=== PATIENT | male | born 1965 | race Caucasian/White ===

== ENCOUNTER 2017-02-17 22:04 | Emergency (ER) | payer MEDICAID ==
[~2017-02-17] VITALS: Ht 177.8 cm; Wt 81.6 kg
--- NOTE | 2017-02-17 22:10 | NUR ---
Called out to waiting room, no response.
--- NOTE | 2017-02-17 22:30 | NUR ---
51 YO MALE BB SELF. PT IS ALERT X3, C/O GENERALIZED BODY PAIN, MALAISE, CHEST DISCOMFORT. PT AMBULATED TO ER BED WITH STEADY GAIT, SKIN WARM AND DRY, RR EVEN AND UNLABORED. PT GOWNED, PLACED ON HEALTH PROGRAM MANAGER. AWAITING ORDERS FROM PROVIDER
--- NOTE | 2017-02-17 22:31 | NUR ---
MD SOTELO AT BED SIDE FOR EVAL
[2017-02-17] MEDS ORDERED: MAG HYDROX/AL HYDROX/SIMETH 30 ML UDC ONE (22:47)
[2017-02-17] MEDS ORDERED: DICYCLOMINE HCL 10 MG CAPSULE PO ONE ×2 (22:47→23:00)
[2017-02-17] MEDS ORDERED: LIDOCAINE VISCOUS 2% UD 15 ML UDC ONE (22:47)
[2017-02-17] MEDS ORDERED: ASPIRIN 81 MG TAB.CHEW ONE (22:47)
[2017-02-17] MEDS ORDERED: NITROGLYCERIN PACKET 1 GM PACKET ONE (22:48)
[2017-02-17] MEDS ORDERED: NITROGLYCERIN PACKET 1 GM PACKET TD ONE (23:00)
[2017-02-17] MEDS ORDERED: LIDOCAINE VISCOUS 2% UD 15 ML UDC MM ONE (23:00)
[2017-02-17] MEDS ORDERED: MAG HYDROX/AL HYDROX/SIMETH 30 ML UDC PO ONE (23:00)
[2017-02-17] MEDS ORDERED: ASPIRIN 81 MG TAB.CHEW PO ONE (23:00)
--- NOTE | 2017-02-17 23:04 | NUR ---
18G LEFT AC IV STARTED, BLOOD SAMPLE OBTAINED AND SENT TO LAB. MEDICATED PT ORDERED
[2017-02-17 23:13] LABS: BASOPHILS % (AUTO) 0.3 % (0.0-2.0); EOSINOPHILS # (AUTO) 0.1 /CMM (0.0-0.7); EOSINOPHILS % (AUTO) 1.1 % (0.0-6.0); HEMATOCRIT 39 % (39-51); HEMOGLOBIN 12.6 g/dL (13.5-17.5); LYMPHOCYTES % (AUTO) 36.1 % (20.0-44.0); MEAN CORPUSCULAR HEMOGLOBIN 27 PG (26.0-33.0); MEAN CORPUSCULAR HGB CONC 32 g/dl (31.0-36.0); MEAN CORPUSCULAR VOLUME 82 fL (80-96); MONOCYTES # (AUTO) 0.6 /CMM (0.1-1.30); MONOCYTES % (AUTO) 6.8 % (2.0-12.0); NEUTROPHILS # (AUTO) 4.6 /CMM (1.8-8.9); NEUTROPHILS % (AUTO) 55.7 % (43.0-81.0); PLATELET COUNT (AUTO) 324 /CMM (150-450); RDW COEFFICIENT OF VARIATION 12.8 (11.5-15.0); RED BLOOD CELL COUNT(AUTO) 4.71 MIL/uL (4.5-6.0); WHITE BLOOD COUNT (AUTO) 8.3 K/uL (4.3-11.0)
[2017-02-17 23:23] LABS: CARBON DIOXIDE 27 mmol/L (21-32); CHLORIDE 103 mmol/L (98-107); GFR 79 mL/min (>60); GLUCOSE 104 mg/dL (74-106); POTASSIUM 3.2 mmol/L (3.5-5.1); SODIUM SERUM 139 mmol/L (136-145); UREA NITROGEN, BLOOD 12 mg/dL (7-18)
[2017-02-17 23:28] LABS: ALANINE AMINOTRANSFERASE 21 U/L (12-78); ALBUMIN 3.8 g/dL (3.4-5.0); ALKALINE PHOSPHATASE 42 U/L (46-116); ASPARTATE AMINOTRANSFERASE 14 U/L (15-37); BILIRUBIN,DIRECT 0.1 mg/dL (0.0-0.2); BILIRUBIN,TOTAL 0.3 mg/dL (0.2-1.0); TOTAL PROTEIN, SERUM 7.4 g/dL (6.4-8.2)
[2017-02-17 23:30] LABS: TROPONIN I < 0.017 ng/mL (0.00-0.056)
[2017-02-17] MEDS ORDERED: POTASSIUM CHLORIDE 20 MEQ TAB.PRT.SR PO ONE ×2 (23:30→23:40)
[2017-02-18 03:53] VITALS: BP 112/60
== END 2017-02-18 03:54 | disposition home or self-care (01) ==
LOC: ER 22:06
DX: R07.9 Chest pain, unspecified (principal); R10.9 Unspecified abdominal pain; Z76.5 Malingerer [conscious simulation]; F43.10 Post-traumatic stress disorder, unspecified; Z88.0 Allergy status to penicillin; Z79.82 Long term (current) use of aspirin; Z59.0 Homelessness
CPT/HCPCS: 36415 ×2; 71010; 80048; 80076; 84484 ×2; 85025; 85652; 86140; 93005; 99285; A4606; Z7610

== ENCOUNTER 2019-03-15 04:59 | Inpatient (IN) | payer MEDICAID ==
[~2019-03-15] VITALS: Ht 177.8 cm; Wt 96.2 kg
--- NOTE | 2019-03-15 05:12 | NUR ---
MARY FITCH FROM STREET. AAOX4. BREATHING EVEN AND UNLABORED. C/O CHEST PAIN ON THE LEFT SIDE OF CHEST THAT FEELS TIGHTNESS WHICH RADIATES TO L SHOULDER WITH FEELING OF NUMBNESS, RATE PAIN 9/10 THAT STARTED 4 DAYS AGO. DENIES N/V/D. PT IS ALSO COMPLAINING OF NECK PAIN AND LOWER BACK PAIN. PT TO ER BED 11. HOOKED ON MONITOR. AWAITING MD ORDERS.
[2019-03-15] MEDS ORDERED: ASPIRIN 325 MG TABLET ONE (05:22)
--- NOTE | 2019-03-15 05:29 | NUR ---
IV LINE OBTAINED ON R AC 18G. BLOOD DRAWN SENT TO LAB
[2019-03-15] MEDS ORDERED: ASPIRIN 325 MG TABLET PO ONE (05:30)
--- NOTE | 2019-03-15 05:32 | NUR ---
EKG AT BEDSIDE
[2019-03-15 05:55] LABS: BASOPHILS % (AUTO) 0.3 % (0.0-2.0); EOSINOPHILS % (AUTO) 1.1 % (0.0-6.0); HEMATOCRIT 27 % (39-51); HEMOGLOBIN 9.3 g/dL (13.5-17.5); LYMPHOCYTES # (AUTO) 2.5 /CMM (0.8-4.8); LYMPHOCYTES % (AUTO) 32.3 % (20.0-44.0); MEAN CORPUSCULAR HGB CONC 34 g/dl (31.0-36.0); MEAN CORPUSCULAR VOLUME 83 fL (80-96); MONOCYTES # (AUTO) 0.7 /CMM (0.1-1.30); MONOCYTES % (AUTO) 9.3 % (2.0-12.0); NEUTROPHILS # (AUTO) 4.4 /CMM (1.8-8.9); PLATELET COUNT (AUTO) 304 /CMM (150-450); RED BLOOD CELL COUNT(AUTO) 3.25 MIL/uL (4.5-6.0); WHITE BLOOD COUNT (AUTO) 7.8 K/uL (4.3-11.0)
[2019-03-15 06:05] LABS: CALCIUM, SERUM 8.2 mg/dL (8.5-10.1); CARBON DIOXIDE 24 mmol/L (21-32); CHLORIDE 105 mmol/L (98-107); CREATININE 0.9 mg/dL (0.6-1.3); GLUCOSE 104 mg/dL (74-106); POTASSIUM 3.7 mmol/L (3.5-5.1); SODIUM SERUM 138 mmol/L (136-145); UREA NITROGEN, BLOOD 18 mg/dL (7-18)
--- NOTE | 2019-03-15 06:40 | NUR ---
PT IN BED SLEEPING. AWAITING INSURANCE VERIFICATION FOR ADMISSION.
--- NOTE | 2019-03-15 07:34 | NUR ---
ENDORSEMENT RECEIVED FROM MAREK CERON FOR NEL
--- NOTE | 2019-03-15 07:35 | NUR ---
REPORT GIVEN TO JIE DENNY FOR NEL.
[2019-03-15] MEDS ORDERED: HYDR-4384 PO (07:41)
[2019-03-15] MEDS ORDERED: RANI150T43 PO (07:41)
[2019-03-15] MEDS ORDERED: DIVA500T2 PO (07:41)
[2019-03-15] MEDS ORDERED: FAMO-131 PO (07:41)
--- NOTE | 2019-03-15 08:13 | NUR ---
PAGED SHARI HADLEY FOR ADMISSION
--- NOTE | 2019-03-15 08:29 | NUR ---
REPORT GIVEN TO MS MCQUEEN OF TELE UNIT
--- NOTE | 2019-03-15 09:00 | NUR ---
2ND PAGE TO SHARI HADLEY FOR ADMISSION
--- NOTE | 2019-03-15 09:38 | NUR ---
US TECH AT BEDSIDE
--- NOTE | 2019-03-15 10:00 | NUR ---
PT WHEELED OUT VIA GUTRNEY WITH SEVERIANO AND RN. PT TRANSFERRED IN STABLE CONDITION.
--- NOTE | 2019-03-15 10:15 | NUR ---
RECEIVED PATIENT FROM ER VIA [facility]. AMBULATORY WITH STANDBY ASSIST, ABLE TO WALK FROM [facility](OUTSIDE THE ROOM) TO BED. A/OX4, ABLE TO MAKE NEEDS KNOWN. 100% SATTING ON ROOM AIR. NOT IN ANY FORM OF DISTRESS, NO SOB. VS WNL. COMPLAINT OF CHEST PAIN, NON-RADIATING 06/07. WILL ADMIN PAIN MEDS ORDERED. PAGED SHARI HADLEY FOR ADMITTING ORDERS. IV ACCESS ON RIGHT AC INTACT AND PATENT. ORIENTED THE PATIENT IN THE ROOM, TAUGHT HOW TO USE THE CALL LIGHT. KEPT PATIENT SAFE AND COMFORTABLE. BED IN LOW/LOCKED POSITION, SIDERAILS UPX2, CALL LIGHT IN REACH. WILL COMTINUE TO MONIOTR ACCORDINGLY.
--- NOTE | 2019-03-15 10:16 | NUR ---
ON TELEMONITORING, SR 69. SKIN ASSESSMENT/BODY CHECK DONE. NO OPEN WOUNDS NOTED. DUPUYTREN'S(PER PATIENT) CONTRACTURES NOTED ON HUA HANDS. ALL BELONGINGS CHECK AND NOTED ON CHECKLIST BY CARMENZA RUIZ. CELPHONE AND MAT INSPECTOR ANT BEDSIDE, WALLET INSIDE BELONGINGS BAG NOTED.
[2019-03-15] MEDS ORDERED: MORPHINE SULFATE INJ 4 MG/ML DISP.SYRIN IV PRN (10:30)
[2019-03-15 10:54] VITALS: BP 125/77
[2019-03-15] MEDS ORDERED: LORAZEPAM INJ 2 MG/ML VIAL IV ONE (14:00)
[2019-03-15] MEDS ORDERED: ONDANSETRON HCL/PF 4 MG/2 ML VIAL IVP PRN (15:30)
[2019-03-15] MEDS ORDERED: Z GUARD REMEDY 2 OZ OINT TP PRN (15:30)
[2019-03-15] MEDS ORDERED: ACETAMINOPHEN 325 MG TABLET PO PRN (15:30)
[2019-03-15 16:00] VITALS: BP 114/49
[2019-03-15] MEDS ORDERED: ENOXAPARIN SODIUM 40 MG/0.4 ML DISP.SYRIN SQ SCH (16:00)
[2019-03-15] MEDS: DIVALPROEX SODIUM 500 MG TABLET.DR PO SCH (17:00)
[2019-03-15] MEDS: FAMOTIDINE (20 MG) 20 MG TABLET PO SCH (17:36)
--- NOTE | 2019-03-15 19:19 | NUR ---
RN CLOSING NOTES PATIENT IN STABLE CONDITION. ALL NEEDS ATTENDED AND PROVIDED. ALL DUE MEDICATIONS GIVEN ORDERED. ASSISTED WITH ADLS. BED IN LOW/LOCKED POSITION, SIDERAILS UPX2, CALL LIGHT IN REACH. ENDORSED TO NIGHT RN FOR NEL.
--- NOTE | 2019-03-15 19:36 | NUR ---
MS/RN OPENING NOTES PATIENT ALERT, ORIENTED ABLE TO VERBALIZE, REPORTED PAIN 9/10 IN BACK AND SHOULDERS, SKIN WARM TO TOUCH, RESPIRATIONS EVEN AND UNLABOREDM DISCUSSED CONCERNS, AND MONITORED. BED LOCKED,M CALL LIGHTS WITHIN REACH.
[2019-03-15] MEDS: MORPHINE SULFATE INJ 2 MG/ML DISP.SYRIN IV PRN (19:47)
--- NOTE | 2019-03-15 19:51 | NUR ---
MS/RN NOTES PAIN MEDICATION MORPHINE 2MG/1ML GIVEN IVP, TO MONITOR PAIN RELIEF. WILL MONITOR.
[2019-03-15 20:00] VITALS: BP_SYST 120; BP_SYST 125; BP_DIAS 75; BP_DIAS 87
--- NOTE | 2019-03-15 20:20 | NUR ---
MS/RN NOTES PATIENT PROVIDED SNACKS, REQUESTED MEDICATION ATIVAN WILL MONITOR.
[2019-03-15] MEDS: ENOXAPARIN SODIUM 40 MG/0.4 ML DISP.SYRIN SQ SCH (20:25)
--- NOTE | 2019-03-15 20:29 | NUR ---
MS/RN NOTES PATIENT REQUEST FO MEDICATION FOR NAUSEA, NEEDED ZOFRAN IV TO GIVE WILL MONITOR.
[2019-03-15] MEDS: ZOLPIDEM TARTRATE 5 MG TABLET PO PRN (22:13)
--- NOTE | 2019-03-15 22:14 | NUR ---
MS/RN NOTES AMBIEN PO MEDICATION 5MG REQUESTED FOR SLEEP WILL MONITOR EFFECTIVENESS.
[2019-03-16] MEDS: MORPHINE SULFATE INJ 2 MG/ML DISP.SYRIN IV PRN ×3 (02:32→20:50)
--- NOTE | 2019-03-16 02:43 | NUR ---
MS/RN NOTES PATIENT AWAKEN FROM SLEEP REPORTED PAIN IN MID CHEST AND NEEDED PAIN MEDICATION MORPHINE 2MG/1 ML IV WILL MONITOR PAIN RELIEF.REQUESTED FOR SNACKS.
[2019-03-16 06:24] LABS: BASOPHILS % (AUTO) 0.5 % (0.0-2.0); EOSINOPHILS % (AUTO) 1.1 % (0.0-6.0); HEMATOCRIT 28 % (39-51); HEMOGLOBIN 9.6 g/dL (13.5-17.5); LYMPHOCYTES # (AUTO) 2.2 /CMM (0.8-4.8); LYMPHOCYTES % (AUTO) 35.5 % (20.0-44.0); MEAN CORPUSCULAR HGB CONC 34 g/dl (31.0-36.0); MEAN CORPUSCULAR VOLUME 83 fL (80-96); MONOCYTES # (AUTO) 0.6 /CMM (0.1-1.30); MONOCYTES % (AUTO) 10.4 % (2.0-12.0); NEUTROPHILS # (AUTO) 3.2 /CMM (1.8-8.9); NEUTROPHILS % (AUTO) 52.5 % (43.0-81.0); PLATELET COUNT (AUTO) 304 /CMM (150-450); WHITE BLOOD COUNT (AUTO) 6.1 K/uL (4.3-11.0)
--- NOTE | 2019-03-16 06:29 | NUR ---
MS/RN NOTES PATIENT ABLE TO SLEEP FEW HOURS, ON PAIN MANAGEMENT MONITORING, ABLE TO VERBALIZE NEEDS, KEPT COMFORTABLE, BELONGINGS WITHIN REACH, BED LOCKED, CALL LIGHTS WITHIN REACH, IV ON RIGHT FOREARM PATENT, WITH NO SIGNS OF INFILTRATION.WILL ENDORSE TO AM RN FOR NEL.
[2019-03-16 06:45] LABS: THYROID STIMULATING HORMONE 2.252 uIU/mL (0.358-3.74)
[2019-03-16 06:47] LABS: ALBUMIN 3.6 g/dL (3.4-5.0); BILIRUBIN,TOTAL 0.4 mg/dL (0.2-1.0); CALCIUM, SERUM 8.5 mg/dL (8.5-10.1); CREATININE 0.8 mg/dL (0.6-1.3); MAGNESIUM 2.1 mg/dL (1.8-2.4); PHOSPHORUS 3.4 mg/dL (2.5-4.9); POTASSIUM 3.7 mmol/L (3.5-5.1); TOTAL PROTEIN, SERUM 6.7 g/dL (6.4-8.2)
--- NOTE | 2019-03-16 07:58 | NUR ---
MS RN OPENING NOTES PT IN BED RESTING, ON ROOM AIR WITH NO SOB AND NO ACUTE DISTRESS NOTED. PT ALERT AND ORIENTED. PT AMBULATORY WITH URINAL AT THE BEDSIDE. BED LOCKED LOWERED AND CALL LIGHT WITHIN REACH. WILL CONTINUE TO MONITOR PT.
[2019-03-16 08:00] VITALS: BP 109/64
[2019-03-16] MEDS: PANTOPRAZOLE 40 MG TABLET.DR PO SCH (08:46)
[2019-03-16] MEDS: FAMOTIDINE (20 MG) 20 MG TABLET PO SCH ×2 (08:46→17:05)
[2019-03-16] MEDS: DIVALPROEX SODIUM 500 MG TABLET.DR PO SCH ×2 (08:46→17:05)
[2019-03-16 16:00] VITALS: BP 134/77
--- NOTE | 2019-03-16 18:52 | NUR ---
MS RN NOTES PATIENT RESTING INSIDE ROOM. AWAKE, ALERT AND ORIENTED X 3, VERBALLY RESPONSIVE AND RESPONDS TO VERBAL AND TACTILE STIMULI. NO ACUTE DISTRESS. NO C/O PAIN OR DISCOMFORT. PATIENT KEPT CLEAN, DRY AND COMFORTABLE. WILL ENDORSE TO INCOMING SHIFT FOR NEL. BED LOCKED AND IN LOW POSITION. BILATERAL UPPER SIDE RAILS UP AND LOCKED. CALL LIGHT WITHIN EASY. WILL CONTINUE TO MONITOR
--- NOTE | 2019-03-16 19:10 | NUR ---
RN ehsansur opening notes PT is alert and oriented X4. PT is awake and watching TV. No sign of distress at this time. NO SOB. No nausea or vomiting. IV is intact, patent and flush without resistance. PT's gait is steady. Bed at low position and call light is within reach. Will continue to monitor and assist all needs.
[2019-03-16 20:00] VITALS: BP 106/71
[2019-03-16] MEDS: ENOXAPARIN SODIUM 40 MG/0.4 ML DISP.SYRIN SQ SCH (20:50)
--- NOTE | 2019-03-16 20:50 | NUR ---
RN NOTES COMPLAINED OF GENERALIZED PAIN- MORPHINE 2MG IV GIVEN ORDERED, V/S STABLE
[2019-03-16] MEDS: ZOLPIDEM TARTRATE 5 MG TABLET PO PRN (22:40)
[2019-03-17] MEDS: MORPHINE SULFATE INJ 2 MG/ML DISP.SYRIN IV PRN ×2 (02:16→06:42)
--- NOTE | 2019-03-17 02:19 | NUR ---
RN NOTES COMPLAINED OF GENERALIZED PAIN -MORPHINE 2 MG IV GIVEN ORDERED, V/S STABLE
--- NOTE | 2019-03-17 06:43 | NUR ---
RN NOTES COMPLAINED OF GENERALIZED PAIN- MORPHINE 2MG IV GIVEN ORDERED V/S STABLE,,, MORNING CARE RENDERED, SIDERAILSUPX2. PT. NEEDS ATTENDED
--- NOTE | 2019-03-17 07:43 | NUR ---
MS RN NOTES PATIENT RECEIVED RESTING INSIDE ROOM. AWAKE, ALERT AND ORIENTED X 4. VERBALLY RESPONSIVE AND RESPONDS TO VERBAL AND TACTILE STIMULI. NO CHANGES IN LOC NOTED AT THIS TIME. NO CHANGES IN LOC NOTED AT THIS TIME. PATIENT CALM AND RELAXED. WILL CONTINUE TO MONITOR. BED LOCKED AND IN LOW POSITION. BILATERAL UPPER SIDE RAILS UP AND LOCKED. CALL LIGHT WITHIN EASY REACH
[2019-03-17 08:00] VITALS: BP 124/81
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
[2019-03-17] MEDS: PANTOPRAZOLE 40 MG TABLET.DR PO SCH (09:57)
[2019-03-17] MEDS: DIVALPROEX SODIUM 500 MG TABLET.DR PO SCH ×2 (09:57→16:22)
[2019-03-17] MEDS: FAMOTIDINE (20 MG) 20 MG TABLET PO SCH ×2 (09:57→16:22)
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
--- NOTE | 2019-03-17 16:02 | NUR ---
MS RN NOTES PATIENT WITH ORDER FROM DR. HADLEY TO OK TO DISCHARGE HOME TODAY. DISCHARGE INSTRUCTIONS AND EDUCATION PROVIDED TO PATIENT AND PATIENT VERBALIZED UNDERSTANDING. IV REMOVED, TIP INTACT, PRESSURE DRESSING PLACED ON SITE. PATIENT REFUSES TO GO THROUGH HIS BELONGINGS, ALSO REFUSES TO SIGN INVENTORY SHEET, WITNESSED BY NURSING STAFF. PATIENT REQUESTED IF HE CAN LEAVE AT 5PM AND IF CAN HAVE A TAP CARD. TAP CARD PROVIDED TO PATIENT FROM NURSING FUR NAILER. EARLY MEAL PROVIDED TO PATIENT
--- NOTE | 2019-03-17 17:05 | NUR ---
MS RN NOTES PATIENT TO DISCHARGE TODAY. LEFT UNIT AMBULATORY IN STABLE CONDITION. NO ACUTE DISTRESS. NO C/O PAIN OR DISCOMFORT. ACCOMPANIED BY NURSING STAFF TO OUTSIDE OF HOSPITAL PREMISES. MD AWARE OF DISCHARGE
== END 2019-03-17 17:00 | disposition home or self-care (01) | DRG 203 ==
LOC: ER 05:01 → TELE 09:24 → MED 16:45
PROVIDERS: ADMIT Nurse Practitioner Acute Care; ATTEND Nurse Practitioner Acute Care
DX: M94.0 Chondrocostal junction syndrome [Tietze] (principal); D64.9 Anemia, unspecified; F32.9 Major depressive disorder, single episode, unspecified; F43.10 Post-traumatic stress disorder, unspecified; Z59.0 Homelessness; M72.0 Palmar fascial fibromatosis [Dupuytren]; Z87.891 Personal history of nicotine dependence
CPT/HCPCS: 36415; 71045-TC; 80048-TC; 80053-TC; 80061-TC; 83540-TC; 83735-TC; 84100-TC; 84443-TC; 84484-TC; 85025-TC; 85730-TC; 87081-TC; 93307-TC; G0378; J1650; J2060; J2270; J2405

== ENCOUNTER 2019-03-28 23:29 | Emergency (ER) | payer MEDICAID ==
[~2019-03-28] VITALS: Ht 177.8 cm; Wt 77.1 kg
[~2019-03-28 23:29] MED LIST: DIVA500T2 PO; FAMO-131 PO; HYDR-4384 PO; RANI150T43 PO
[2019-03-29] MEDS ORDERED: KETOROLAC TROMETHAMINE INJ 60 MG/2 ML VIAL IM ONE ×2 (00:28→00:30)
[2019-03-29 02:12] VITALS: BP 111/68
== END 2019-03-29 02:13 | disposition home or self-care (01) ==
LOC: ER 23:35
DX: F41.9 Anxiety disorder, unspecified (principal); M54.9 Dorsalgia, unspecified; F43.10 Post-traumatic stress disorder, unspecified; M54.2 Cervicalgia; G89.29 Other chronic pain; F32.9 Major depressive disorder, single episode, unspecified; Z88.0 Allergy status to penicillin; Z60.2 Problems related to living alone
CPT/HCPCS: 96372; 99284; J1885

== ENCOUNTER 2019-05-17 01:11 | Emergency (ER) | payer MEDICAID, OTHER ==
[~2019-05-17] VITALS: Ht 177.8 cm; Wt 81.6 kg
[~2019-05-17 01:11] MED LIST changes: +RANI-655 PO; -RANI150T43 PO
[2019-05-17 01:22] VITALS: BP 127/81
[2019-05-17] MEDS ORDERED: HYDROCODONE/APAP 5/325MG 1 EACH TABLET ONE (01:43)
[2019-05-17] MEDS ORDERED: SILVER SULFADIAZINE CREAM 25 GM TUBE ONE (01:43)
[2019-05-17] MEDS ORDERED: SULFAMETH/TRIMETH 800/160 MG 1 UDTAB TABLET ONE (01:44)
[2019-05-17] MEDS ORDERED: SULFAMETH/TRIMETH 800/160 MG 1 UDTAB TABLET PO ONE (02:00)
[2019-05-17] MEDS ORDERED: HYDROCODONE/APAP 5/325MG 1 EACH TABLET PO ONE (02:00)
[2019-05-17] MEDS ORDERED: SILVER SULFADIAZINE CREAM 25 GM TUBE TP ONE (02:00)
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
--- NOTE | 2019-05-17 02:04 | NUR ---
Patient discharged to home in stable condition. Written and verbal after care instructions given. Patient verbalizes understanding of instruction. Pt ambulatory with a steady gait
== END 2019-05-17 02:17 | disposition home or self-care (01) ==
LOC: ER 01:13
DX: T24.231A Burn of second degree of right lower leg, initial encounter (principal); F43.10 Post-traumatic stress disorder, unspecified; F41.9 Anxiety disorder, unspecified; Z88.0 Allergy status to penicillin; Z60.2 Problems related to living alone; Z79.899 Other long term (current) drug therapy; X19.XXXA Contact with other heat and hot substances, initial encounter; Y93.89 Activity, other specified; Y92.89 Other specified places as the place of occurrence of the external cause; Y99.8 Other external cause status
CPT/HCPCS: 16020; 99284; A6253